=== PATIENT | female | born 1955 | race Two or more races ===

== ENCOUNTER → 2016-10-27 | Outpatient (CLI) | payer BC ==
--- NOTE | 2016-10-28 10:05 | Diagnostic Imaging Report ---
Indication: SOB Technique: 2 views of the chest Comparison: none Findings: Lungs and pleural spaces are clear except for minimal atelectasis or scarring at the left lateral lung base. Heart size is normal. Impression: No acute process
== END | disposition home or self-care (01) ==
LOC: RAD 16:09
DX: R50.9 Fever, unspecified (principal); R06.02 Shortness of breath
CPT/HCPCS: 71020

== ENCOUNTER → 2017-06-18 | Outpatient (CLI) | payer BC, MEDICAID ==
--- NOTE | 2017-06-18 14:06 | Diagnostic Imaging Report ---
Indication: Cough Comparison: 10/27/2016 2 views of the chest obtained. PICC line is present in good position with the tip in the SVC. Lungs are clear. Cardiac mediastinal silhouette is normal. Bones are osteopenic slightly. There is mild vertebral compression deformity of the superior endplates of 2 of the lower thoracic upper lumbar vertebra. IMPRESSION: No acute disease. PICC line
== END | disposition home or self-care (01) ==
LOC: RAD 10:52
DX: R05 Cough (principal); M85.80 Other specified disorders of bone density and structure, unspecified site
CPT/HCPCS: 71046

== ENCOUNTER 2018-10-28 14:02 | Outpatient (CLI) | payer MEDICARE, BC, MEDICAID ==
--- NOTE | 2018-10-28 15:44 | Diagnostic Imaging Report ---
Indication: Cough Comparison: 06/18/2017 2 views of the chest obtained. Findings: There is a PICC line present the tip projected over the SVC. Lungs remain clear. Bones are osteopenic. IMPRESSION: No acute disease
== END 2018-10-28 16:02 | disposition home or self-care (01) ==
LOC: RAD 14:02
DX: R05 Cough (principal); M85.80 Other specified disorders of bone density and structure, unspecified site
CPT/HCPCS: 71046